=== PATIENT | female | born 1975 | race Caucasian/White ===

== ENCOUNTER → 2018-03-02 07:01 | Outpatient (CLI) | payer BC | END | disposition home or self-care (01) | LOC: D.MRI 07:00 | DX: M25.511 Pain in right shoulder (principal) ==

== ENCOUNTER 2018-06-12 11:09 | Outpatient (CLI) | payer BC | END 2018-06-12 13:15 | LOC: D.OPS 11:09 | DX: R49.0 Dysphonia (principal); R11.0 Nausea; Z01.812 Encounter for preprocedural laboratory examination ==

== ENCOUNTER 2018-07-23 09:05 | Day surgery (SDC) | payer BC ==
[2018-07-20 10:01] LABS: HEMATOCRIT 39.8 % (36.0-48.0); HEMOGLOBIN 13.6 g/dL (12-16); MCH 31.5 pg (26.0-34.0); MCHC 34.2 g/dL (31.0-37.0); MCV 92.1 fL (80.0-100.0); MEAN PLATELET VOLUME 9.1 fL (7.4-10.4); RBC 4.32 10x6/uL (4.00-5.40); RDW 12.3 % (11.5-14.5)
[~2018-07-23] VITALS: Ht 170.2 cm; Wt 54.5 kg
[~2018-07-23 09:05] MED LIST: FLUTICASONE PRO16 GM NASAL; MOBIC7.5 MG PO; PROTONIX40 MG PO; PROZAC40 MG PO; RANITIDINE HCL150 M1 PO; SYNTHROID25 MCG PO; [UNRECOGNIZED DRUG - OTHER]; [UNRECOGNIZED DRUG - OTHER]
[2018-07-23 10:07] VITALS: BP 117/74; BMI 20.1
[2018-07-23 13:25] VITALS: BP 101/56
--- NOTE | 2018-07-23 14:00 | NUR ---
PT RECIEVED TO FLOOR. ASSESSMENT COMPLETE- SEE ASSESSMENT FLOWSHEET FOR FURTHER DETAILS. VITALS STABLE. AND KIDS AT BEDSIDE. R HAND PIV (20G) LR @100- C/D/I; PATENT. S1 AND S2 AUSCULTATED AT AORTIC, PULMONIC, ERBS, TRICUSPID, AND MITRAL SITES- REGULAR RHYTHM. RADIAL AND PEDAL PULSES PALPABLE AND STRONG BILAT. LUNG SOUNDS CTA- SATS WITHIN NORMAL RANGE ON RA. BOWEL SOUNDS ACTIVE X4. 5 ABD INCISION WITH DERMABOND AND STERRI STRIPS IN PLACE. PT AAO X3 TO PERSON, PLACE, AND TIME. CL WITHIN REACH.
[2018-07-23 15:37] VITALS: BP 111/58; Ht 170.2 cm; Wt 54.5 kg
--- NOTE | 2018-07-23 16:07 | NUR ---
PT BP AT 77/40- CALLED DR. PEREZ AND GOT VERBAL ORDER OF 0.9% NACL FLUID BOLUS. WILL CONTINUE TO MONITOR PT. AT BEDSIDE.
[2018-07-23 16:36] LABS: BASOPHILS 0.1 % (0-2); EOSINOPHILS 0 % (0-7); HEMATOCRIT 30.4 % (36.0-48.0); HEMOGLOBIN 10.1 g/dL (12-16); IMMATURE GRANULOCYTES 0.3 % (0-5); LYMPHOCYTES 4.6 % (15-50); MCH 30.8 pg (26.0-34.0); MCHC 33.2 g/dL (31.0-37.0); MCV 92.7 fL (80.0-100.0); MEAN PLATELET VOLUME 8.7 fL (7.4-10.4); MONOCYTES 0.4 % (2-11); NEUTROPHILS 94.6 % (40-80); PLATELET COUNT 187 10x3/uL (130-400); RBC 3.28 10x6/uL (4.00-5.40); RDW 12.2 % (11.5-14.5); WBC 10.5 10x3/uL (4.8-10.8)
[2018-07-23 17:20] VITALS: BP 94/44
[2018-07-23 20:46] VITALS: BP 91/53
--- NOTE | 2018-07-23 20:50 | NUR ---
A/OX4. AT BEDSIDE. ANSWERED CALL LIGHT, PT C/O BLEEDING FROM INCISION. OBSERVED SMALL AMOUNT OF BLOOD POOLED IN BELLY BUTTON, SOAKED UP WITH SINGLE 4X4. NO ADDITIONAL BLEEDING AFTER INITIAL AMOUNT SOAKED FROM UNBILICUS. PT STATED SHE HAD GOTTEN UP AND AFTER GETTING BACK IN BED NOTICED BLOOD ON GOWN. NOTED BLOOD ON GOWN AND DOWN SUPRAPUBIC AREA TO UPPER LEGS. EBL-20CC. PT ALSO C/O HAVING ABNORMAL MENSTRAL BLEEDING AND HAS HX OF UTERINE ABLASION. APPLIED SMALL DRESNG TO UNBILICUS AREA. FIRST UNIT OF BLOOD INFUSING AT THIS TIME. WILL MOITOR V/S AND CONTINUE POC.
--- NOTE | 2018-07-23 22:20 | NUR ---
A/OX4. BEGAN INFUSION OF 2ND UNIT OF BLOOD. PRE-INFUSION VITALS. TEMP 97.6 (SHE LITERALLY TOOK A DRINK RIGHT BEFORE TEMP CHECK). PULSE 64, RESP 18, BP 87/37. 15MIN V/S AT 2235, TEMP 98.3, PULSE 84/44. WITH BOTH SETS OF VITALS PTS O2 SATS REMAINED AT 96-98% ROOM AIR. HR REMAINED STABLE. WILL CONTINUE TO MONITOR. WILL CONTINUE POC.
[2018-07-24 00:08] VITALS: BP 97/53
[2018-07-24 04:22] VITALS: BP 96/54
[2018-07-24 07:22] LABS: BASOPHILS 0.2 % (0-2); EOSINOPHILS 1.2 % (0-7); HEMATOCRIT 33.4 % (36.0-48.0); HEMOGLOBIN 11.1 g/dL (12-16); IMMATURE GRANULOCYTES 0.3 % (0-5); LYMPHOCYTES 27.8 % (15-50); MCH 30.7 pg (26.0-34.0); MCHC 33.2 g/dL (31.0-37.0); MCV 92.3 fL (80.0-100.0); MEAN PLATELET VOLUME 8.9 fL (7.4-10.4); MONOCYTES 7.2 % (2-11); NEUTROPHILS 63.3 % (40-80); PLATELET COUNT 175 10x3/uL (130-400); RBC 3.62 10x6/uL (4.00-5.40); RDW 12.8 % (11.5-14.5); WBC 9.2 10x3/uL (4.8-10.8)
[2018-07-24 07:33] LABS: CALC OSMOLALITY 276 mosm/kg (275-300); CARBON DIOXIDE 26.9 mmol/L (21.0-32.0); CHLORIDE - SERUM 104 mmol/L (98-107); CREATININE - SERUM 0.8 mg/dL (0.6-1.3); GLUCOSE 88 mg/dL (74-106); POTASSIUM - SERUM 3.8 mmol/L (3.5-5.1); SODIUM 137 mmol/L (136-145); UREA NITROGEN 23 mg/dL (7-18); eGFR NON AFRICAN AMERICAN 82 mL/min (90-120)
[2018-07-24 08:40] VITALS: BP 103/56
[2018-07-24] MEDS ORDERED: HYDROCODON-ACE1 EAC7 PO ×2 (09:44→14:15)
[2018-07-24 12:40] VITALS: BP 99/59
--- NOTE | 2018-07-24 12:52 | NUR ---
DISCHARGE INSTRUCTIONS GIVEN AND UNDERSTOOD. IV DC'ED WITH TIP INTACT. NO NEEDS AT THIS TIME
== END 2018-07-24 12:45 | disposition home or self-care (01) ==
LOC: D.OPS 09:05 → D.PAN 11:00 → D.OPS 11:00 → D.MS 13:03 → D.OPS 07-24 12:45
PROVIDERS: Anesthesiology; Surgery
DX: K21.9 Gastro-esophageal reflux disease without esophagitis (principal); K44.9 Diaphragmatic hernia without obstruction or gangrene; I10 Essential (primary) hypertension; Z01.812 Encounter for preprocedural laboratory examination

== ENCOUNTER → 2018-09-20 08:55 | Outpatient (CLI) | payer BC ==
[2018-07-23 15:37] VITALS: BMI 18.8
[~2018-09-20 08:55] MED LIST changes: +HYDROCODON-ACE1 EAC7 PO
== END | disposition home or self-care (01) ==
LOC: D.NM 08:30
PROVIDERS: ATTEND Surgery
DX: K31.84 Gastroparesis (principal)

== ENCOUNTER → 2018-12-06 06:27 | Outpatient (CLI) | payer BC ==
[2018-07-23 15:37] VITALS: BMI 18.8
== END | disposition home or self-care (01) ==
LOC: D.US 06:27
PROVIDERS: ATTEND Internal Medicine Gastroenterology
DX: R10.31 Right lower quadrant pain (principal); R11.0 Nausea; K31.84 Gastroparesis